=== PATIENT | female | born 1990 | race American Indian/Alaskan Native ===

== ENCOUNTER 2019-08-04 14:46 | Emergency (ER) | payer SELFPAY ==
[2019-08-04 15:18] VITALS: BP 130/74
[2019-08-04] MEDS ORDERED: LIDOCAINE-MPF (1%) 10 MG/1 ML VIAL 5 ML INFILTRATI ONE (15:29)
--- NOTE | 2019-08-04 15:33 | Emergency Department Report ---
- General Chief Complaint: Wound/Laceration Stated Complaint: CUT FINGER Time Seen by Provider: 08/04/19 15:25 Source: patient Mode of arrival: Ambulatory Limitations: No Limitations - History of Present Illness Initial Comments: pt is a 28-year-old female presents emergency room with complaints of a laceration to her right ring finger that occurred just prior to arrival. States that she was cleaning in the kitchen and got cut with a steak knife. she denies any pain in her finger. states just pain where the cut is. She states her last tetanus immunization was in 2014. States that the bleeding has resolved. Denies any numbness or weakness. denies any past medical history or allergies medications. - Related Data Allergies Allergy/AdvReac Type Severity Reaction Status Date / Time No Known Allergies Allergy Unverified 08/04/19 14:49 ED Review of Systems ROS: Stated complaint: CUT FINGER Other details as noted in HPI Comment: All other systems reviewed and negative ED Past Medical Hx - Past Medical History Previous Medical History?: No - Surgical History Past Surgical History?: No - Social History Smoking Status: Current Every Day Smoker Substance Use Type: None ED Physical Exam - General Limitations: No Limitations General appearance: alert, in no apparent distress - Head Head exam: Present: atraumatic, normocephalic - Eye Eye exam: Present: normal appearance - ENT ENT exam: Present: mucous membranes moist - Neurological Exam Neurological exam: Present: alert, oriented X3 - Psychiatric Psychiatric exam: Present: normal affect, normal mood - Skin Skin exam: Present: warm, dry, other (1.5 cm laceration to the medial side of the right ring finger, bleeding controlled, appears superficial, no foreign body, no tendon involvement, FROM of the right ring finger, sensation intact, 2+ radial pulse, brisk cap refill, no deformity ) ED Course Vital Signs 08/04/19 15:17 Temperature 98.5 F Pulse Rate 110 H Respiratory 16 Rate Blood Pressure 130/74 O2 Sat by Pulse 98 Oximetry - Laceration /Wound Repair Right Medial Finger Wound Location: upper extremity (right ring finger on the medial side) Wound Length (cm): 1 (wound is 1.5 cm) Wound's Depth, Shape: superficial Wound Explored: clean Irrigated w/ Saline (ccs): 50 Betadine Prep?: Yes Anesthesia: 1% Lidocaine Volume Anesthetic (ccs): 2 Wound Debrided: minimal Wound Repaired With: sutures Suture Size/Type: 4:0, proline Number of Sutures: 3 Layer Closure?: No Sterile Dressing Applied?: Yes Progress: Wound was irrigated with saline, no foreign body identified, no tendon involvement, cleaned thoroughly with Betadine, 2 mL of 1% lidocaine without epi used as anesthetic, sterile drapes applied, sterile gloves worn, 3 sutures placed of 4-0 Prolene, patient tolerated well, no complications, bleeding controlled ED Medical Decision Making - Medical Decision Making pt is a 28-year-old female presents emergency room with complaints of a laceration to her right ring finger that occurred just prior to arrival. States that she was cleaning in the kitchen and got cut with a steak knife. she denies any pain in her finger. states just pain where the cut is. She states her last tetanus immunization was in 2014. States that the bleeding has resolved. Denies any numbness or weakness. denies any past medical history or allergies medications. on exam; 1.5 cm laceration to the medial side of the right ring finger, bleeding controlled, appears superficial, no foreign body, no tendon involvement, FROM of the right ring finger, sensation intact, 2+ radial pulse, brisk cap refill, no deformity. laceration repaired per procedure note in sterile fashion. pts discomfort treated while in the ED as pt did not drive. advised pt to Please keep area clean, dry, covered. May wash with soap and water and immediately dry. sutures need to be removed in 7 days may have that completed in the emergency department or your primary care physician. No hot tub, pool, soaking in water. Return to the emergency room for any new or worsening symptoms or any signs of infection. Critical care attestation.: If time is entered above; I have spent that time in minutes in the direct care of this critically ill patient, excluding procedure time. ED Disposition Clinical Impression: Laceration of finger Qualifiers: Encounter type: initial encounter Finger: ring finger Damage to nail status: without damage Foreign body presence: without foreign body Laterality: right Qualified Code(s): S61.214A - Laceration without foreign body of right ring finger without damage to nail, initial encounter Disposition: TO HOME OR SELFCARE Is pt being admited?: No Does the pt Need Aspirin: No Condition: Stable Instructions: Suture Care (ED), Laceration (ED) Additional Instructions: Please keep area clean, dry, covered. May wash with soap and water and immediately dry. sutures need to be removed in 7 days may have that completed in the emergency department or your primary care physician. No hot tub, pool, soaking in water. Return to the emergency room for any new or worsening symptoms or any signs of infection. Referrals: [facility] [Provider Group] - 3-5 Days Time of Disposition: 16:00 Print Language: ITALIAN
[2019-08-04] MEDS ORDERED: ACETAMINOPHEN W/CODEINE 300-30 MG TAB PO ONE (16:00)
== END 2019-08-04 16:10 | disposition home or self-care (01) ==
LOC: ED 14:46
DX: S61.214A Laceration without foreign body of right ring finger without damage to nail, initial encounter (principal); F17.200 Nicotine dependence, unspecified, uncomplicated; W26.0XXA Contact with knife, initial encounter; Y93.G9 Activity, other involving cooking and grilling; Y92.000 Kitchen of unspecified non-institutional (private) residence as the place of occurrence of the external cause; Y99.8 Other external cause status